=== PATIENT | male | born 1990 | race American Indian/Alaskan Native ===

== ENCOUNTER 2018-06-06 04:12 | Emergency (ER) | payer OTHER ==
[~2018-06-06] VITALS: Ht 182.9 cm; Wt 86.2 kg
== END 2018-06-06 06:06 | disposition home or self-care (01) ==
LOC: ED 04:12
DX: R51 Headache (principal); R11.0 Nausea; R07.89 Other chest pain
CPT/HCPCS: 80053; 81001; 85025; 99284